=== PATIENT | female | born 1950 | race African-American/Black ===

== ENCOUNTER 2018-07-04 19:42 | Inpatient (IN) | payer MEDICARE, OTHER ==
[~2018-07-04] VITALS: Ht 160 cm; Wt 117.5 kg
--- NOTE | 2018-07-04 19:40 | NUR ---
CALLED TO ER DUE TO ARRIVAL OF NEW PATIENT- ALOC. PATIENT BROUGHT IN BY AMBULANCE. BAGGED PATIENT WITH 100% OXYGEN. ER MD AND ER NURSES AT BEDSIDE. PATIENT INTUBATED BY DR KOEHLER. PATIENT INTUBATED WITH 7.5 ETT, 23 CM AT THE TEETH LINE. COLORIMETRIC CHANGE IDENTIFIED TUBE PLACEMENT. PLACED PATIENT ON VENT WITH SETTINGS: AC/VC 450, 20, +5, 100%. ANCHORFAST APPLIED. AIRWAY SECURE AND PATENT. SUCTIONED LARGE AMOUNT OF THIN, BROWN SECRETIONS. SPUTUM SAMPLE OBTAINED AND SENT TO LAB. WILL CONTINUE TO MONITOR PATIENT.
[2018-07-04 19:42] VITALS: BP_SYST 138; BP_SYST 150; BP_DIAS 102; BP_DIAS 121
--- NOTE | 2018-07-04 19:42 | NUR ---
68/F BIB EMS FOR ALOC. PER EMS, PT WAS FOUND IN HOME COVERED IN OWN FECES AND URINE X2 DAYS. PT ARRIVES TO ED, PT OBTUNDED, GCS 5 ([id number]), PERRL, SKIN NORMAL COOL MILDLY CLAMMY, PT WITH NPA ON R NARES, BEING VENTILATED VIA AMBUBAG 15L O2, SPO2 98%. LUNG SOUNDS CLEAR BL. HR 125 EVEN AND TACHYCARDIC, BP 138/102. BS ACTIVE X4, ABD SOFT ROUND LARGE. PT PLACED ON CARDIAC AND SPO2 MONITOR. BLOOD GLUCOSE [address] KOEHLER, RT, EMT, CO FOUNDER AND CTO, SUBCONTRACTS MANAGER AND PRIMARY RN AT BEDSIDE. HX HTN, DM
--- NOTE | 2018-07-04 19:42 | NUR ---
193-- PT BIB BY RYLEE TO ER BED 10
--- NOTE | 2018-07-04 19:42 | NUR ---
SUPERFICIAL BURN NOTED ON R ARM.
--- NOTE | 2018-07-04 19:43 | NUR ---
1934-- ERMD BEDSIDE EVALUATING PT
--- NOTE | 2018-07-04 19:43 | NUR ---
IO ON R TIBIA INFUSING VERY SLOWLY. UNSUCCESSFUL ATTEMPTS TO PLACE IV BY 2 STAFF RNs. IO PLACED ON L TIBIA BY STAFF SUBMARINE WARFARE OFFICER, PT TOLERATED WELL.
--- NOTE | 2018-07-04 19:43 | NUR ---
REYES PLACED BY QUALITY IMPROVEMENT COORDINATOR (RN), PT TOLERATED WELL. URINE RETURN OF ARASH CLOUDY URINE.
--- NOTE | 2018-07-04 19:49 | NUR ---
ROCURONIUM DROPPED ON FLOOR BY GAS STOVE SERVICER HELPER, WASTED AND NOT USED. PER ER MD, VERBAL ORDER FOR ETOMIDATE 20MG IVP STAT AND VECURONIUM 8MG IVP STAT FOR INTUBATION
--- NOTE | 2018-07-04 19:55 | NUR ---
PT SUCCESSFULLY INTUBATED, PT TOLERATED WELL, SPO2 100%, EQUAL CHEST RISE AND FALL.
[2018-07-04 20:00] VITALS: BP 138/102
--- NOTE | 2018-07-04 20:02 | NUR ---
OG TUBE PLACED BY FIBER OPTIC CENTRAL OFFICE INSTALLER, PT TOLERATED WELL, PLACEMENT VERIFIED.
[2018-07-04] MEDS ORDERED: NACL 0.9% 1,000 ML IV SCH (20:03)
[2018-07-04] MEDS ORDERED: PROPOFOL 1000 MG/100 ML PREMIX 100 ML IV ONE ×2 (20:05)
[2018-07-04] MEDS ORDERED: VECURONIUM 10 MG VIAL IVP ONE (20:05)
[2018-07-04] MEDS ORDERED: VANCOMYCIN 1,000 MG in DEXTROSE 5% 250 ML IV ONE (20:05)
[2018-07-04] MEDS ORDERED: ETOMIDATE 20 MG/10 ML VIAL IVP ONE (20:05)
[2018-07-04] MEDS ORDERED: PIPERACILLIN/TAZOBACTAM 3.375 GM in DEXT 5% MINI-BAG PLUS 50 ML IV ONE (20:05)
[2018-07-04] MEDS ORDERED: MORP60TA PO (20:20)
[2018-07-04] MEDS ORDERED: GABA600T12 PO (20:20)
[2018-07-04] MEDS ORDERED: ACET-787 PO (20:20)
[2018-07-04] MEDS ORDERED: ORE25 PO (20:20)
[2018-07-04] MEDS ORDERED: DOCU-299 PO (20:20)
[2018-07-04] MEDS ORDERED: ATOR10TA PO (20:20)
[2018-07-04] MEDS ORDERED: PROP20TA29 PO (20:20)
[2018-07-04] MEDS ORDERED: LOSA50TA66 PO (20:20)
[2018-07-04] MEDS ORDERED: SPIR25TA20 PO (20:20)
[2018-07-04] MEDS ORDERED: BACL10TA4 PO (20:20)
[2018-07-04] MEDS ORDERED: AMLO5TAB PO (20:20)
--- NOTE | 2018-07-04 20:20 | NUR ---
PT'S ANTERIOR SURFACES CLEANSED WITH RECRUITMENT CONSULTANT
--- NOTE | 2018-07-04 20:30 | NUR ---
PUBLIC HEALTH POLICY ANALYST ONLY ABLE TO DRAW 1 SET OF BLOOD CULTURES DUE TO PT BEING A HARD STICK. CARLY SOLORZANO MADE AWARE. WILL DRAW BLOOD DURING PICC LINE INSERTION.
[2018-07-04] MEDS ORDERED: VANCOMYCIN 1,000 MG VIAL ONE (20:43)
[2018-07-04] MEDS ORDERED: PIPERACILLIN/TAZOBACTAM 3.375 GM VIAL IV ONE (20:43)
--- NOTE | 2018-07-04 21:00 | NUR ---
TIME OUT CALLED FOR R FEMORAL PICC 3X LUMEN INSERTION. DR KOEHLER, PRIMARY RN AND RUBBER TILE FLOOR LAYER AT BEDSIDE. SUCCESSFUL PLACEMENT, PT TOLERATED WELL.
--- NOTE | 2018-07-04 21:10 | NUR ---
Mathew le in ED - 07/05/18 at 0409 by VINAYAK PT BACK FROM CT. CONDITION STABLE.
[2018-07-04 21:19] LABS: APPEARANCE,URINE SL CLOUDY (CLEAR); BILIRUBIN,URINE 2+ (NEGATIVE); BLOOD, URINE 3+ (NEGATIVE); COLOR,URINE YELLOW (YELLOW); LEUKOCYTE ESTERASE ,URINE NEGATIVE (NEGATIVE); NITRITE, URINE NEGATIVE (NEGATIVE); PH,URINE 5.5 (5.0-9.0); UGLUCOSE NEGATIVE (NEGATIVE)
[2018-07-04 21:33] LABS: RBC,URINE 11-20 (MOD) /HPF (0-5)
[2018-07-04 21:33] LABS: HEMATOCRIT 47.4 % (36-48); HEMOGLOBIN 15.8 g/dL (12.0-16.0); MEAN CORPUSCULAR HEMOGLOBIN 30 pg (27-31); MEAN CORPUSCULAR HGB CONC 33 g/dL (33-37); MEAN CORPUSCULAR VOLUME 90.4 fL (80-94); PLATELET COUNT (AUTO) 236 K/uL (140-450); RED BLOOD CELL COUNT(AUTO) 5.25 MIL/uL (4.20-5.40); RED CELL DISTRIBUTION WIDTH 14.2 % (11.6-13.7)
[2018-07-04 21:42] LABS: ANION GAP 20.8 (8-16); CARBON DIOXIDE 27.9 mmol/L (21-32); CREATININE 2.5 mg/dL (0.6-1.3); POTASSIUM 3.7 mmol/L (3.5-5.1)
--- NOTE | 2018-07-04 21:45 | NUR ---
TRANSFERED PATIENT TO CT WITH NO INCIDENT. PATIENT WAS BAGGED WITH AMBU BAG AT 100% FIO2 EN ROUTE AND DURING CT. PATIENT WAS CONNECTED TO A MONITOR FOR HEART RATE AND SPO2 MONITORING.
--- NOTE | 2018-07-04 21:45 | NUR ---
PRIMARY RN, EMT, LIFE SCIENCE RESEARCH ASSISTANT AND RT AT BEDSIDE. PT PLACED ON CARDIAC AND SPO2 MONITOR. PROPOFOL DRIP, IVF AND IVPB INFUSING WELL. PT IN STABLE CONDITION. TAKEN TO CT FOR CT HEAD AT THIS TIME.
[2018-07-04 21:47] LABS: PROTHROMBIN TIME 11.8 secs (10.8-13.4)
[2018-07-04 21:49] LABS: ALBUMIN 2.9 g/dL (3.4-5.0)
[2018-07-04 22:03] LABS: LYMPHOCYTES % (MANUAL) 6 % (20-46); MONOCYTES % (MANUAL) 4 % (5-12)
[2018-07-04 22:04] LABS: PROMYELOCYTES % 1 % (0-0)
[2018-07-04] MEDS ORDERED: NACL 0.9% 1,000 ML IV ONE (22:10)
--- NOTE | 2018-07-04 22:10 | NUR ---
PT BACK FROM CT, CONDITION STABLE.
--- NOTE | 2018-07-04 22:19 | NUR ---
PRIMARY RN, EMT, HUMAN RESOURCES SPECIALIST AND RT AT BEDSIDE. PT PLACED ON CARDIAC AND SPO2 MONITOR. PROPOFOL DRIP, IVF AND IVPB INFUSING WELL. PT IN STABLE CONDITION. TAKEN TO CT FOR CT CERVICAL AT THIS TIME.
--- NOTE | 2018-07-04 22:19 | NUR ---
PT TAKEN TO CT VIA BED
--- NOTE | 2018-07-04 22:31 | NUR ---
PT BACK FROM CT, CONDITION STABLE. PLACED BACK ON MECHANICAL VENT, MILL ROLL REWINDER AND SPO2 MONITOR.
--- NOTE | 2018-07-04 22:31 | NUR ---
PT RETURNED FROM CT VIA BED
[2018-07-04] MEDS ORDERED: INSULIN REGULAR, HUMAN 100 UNIT in NACL 0.9% 100 ML IV ONE ×2 (22:45)
--- NOTE | 2018-07-04 22:45 | NUR ---
PT'S POSTERIOR SURFACES CLEANSED AND PAT DRY. NOTED R SACRAL MOISTURE SKIN EXCORIATION AND SKIN TEAR AND L SHOULDER BURN/DISCOLORATION. BED CLEANED, GOWN CHANGED. PT TOLERATED WELL.
[2018-07-04] MEDS ORDERED: cefTRIAXone 2,000 MG in DEXTROSE 5% 100 ML IV ONE (22:50)
[2018-07-04 23:02] LABS: BARBITURATE, URINE NEG. ng/ml (NEG <=200); BENZODIAZEPINE, URINE NEG. ng/mL (NEG <=200); CANNABINOID, URINE NEG. ng/mL (NEG <=50); COCAINE, URINE NEG. ng/mL (NEG <=300); OPIATE, URINE POS. ng/mL (NEG <=2000); PHENCYCLIDINE SCREEN,URINE NEG. ng/mL (NEG <=25)
--- NOTE | 2018-07-04 23:03 | NUR ---
OG TUBE HAS DRAINED 300ML DARK BROWN EMESIS AT THIS TIME.
[2018-07-04 23:13] LABS: ACETAMINOPHEN < 0.5 ug/ml (10-30); SALICYLATE < 2.8 mg/dL (2.8-20.0)
[2018-07-04] MEDS ORDERED: ACETAMINOPHEN 325 MG TAB PO PRN (23:15)
[2018-07-04] MEDS ORDERED: HYDROcodone/APAP 5/325 MG 1 TAB TAB PO PRN (23:15)
[2018-07-04] MEDS ORDERED: ALBUTEROL SULFATE/IPRATROPIU 3 ML SOL IH PRN (23:15)
[2018-07-04] MEDS ORDERED: LORazepam 2 MG/ML VIAL IM/IVP PRN (23:15)
[2018-07-04] MEDS ORDERED: DOCUSATE SODIUM 100 MG GELCAP PO PRN (23:15)
[2018-07-04] MEDS ORDERED: MORPHINE SULFATE 2 MG/ML SYR IVP PRN (23:15)
[2018-07-04] MEDS ORDERED: ONDANSETRON 4 MG/2 ML VIAL IM/IVP PRN (23:15)
[2018-07-04] MEDS ORDERED: DEXTROSE 50% 50 ML SYR IVP PRN (23:15)
[2018-07-04] MEDS ORDERED: ZOLPIDEM 5 MG TAB PO PRN (23:15)
[2018-07-04] MEDS ORDERED: VANCOMYCIN PER PHARMACY MC PRN (23:15)
[2018-07-04] MEDS ORDERED: cefTRIAXone 2,000 MG VIAL ONE (23:16)
--- NOTE | 2018-07-04 23:28 | NUR ---
Patient will be admitted to care of DR SOFIA. Admited to ICU. Will go to room 1. Belongings list completed. Report to RACHAEL KIRAN.
--- NOTE | 2018-07-04 23:35 | NUR ---
RECEIVED PT FROM ER BROUGHT BY ER STAFF AND RT WITH RYLEE. PT IS ETT TO VENT WITH VENT SETTING AC RATE 18,TV 450, FIO2 100% AND PEEP OF 5 TOLERATED WELL. CRANBERRY SORTER SHOW SR WITH BUNDLE BRANCH,OGT IN PLACE, PLACEMENT CONFIRM, CONNECT TO INTERMITTENT SUCTION PER . OGT DRAIN BLACKISH COLOR, ABD SOFT NON DISTEDNDED.PT IS SEDATED. PT COME WITH PROPOFOL AT 15 MCG/KG/MIN, TO RIGHT FEMORAL PICC LINE.DRY WT IS 110 KG. IV NS AT 100 CC/HR FROM ER.PERIPHERAL LINE TO RIGHT WRIST NO 20 GAUGE. REPORT GIVEN BY KIRILL CANO. PER REPORT PT WAS BROUGHT BY AMBULANCE WITH ALTERED LEVEL OF CONSCIOUSNESS. NOTED PT WITH MULTIPLE ABRASION TO RIGHT UPPER ARM,ON SKIN TO RIGHT ELBOW ABD TO RIGHT BUTTOCK AREA.F/C IN PLACE WITH CLOUDY URINE.NO FAMILY PRESENT AT THIS TIME. AT BED SIDE AND DR. GREWAL PULMOLOGIST COME TO SEE PT.CONT TO MONITOR CLOSELY. Addendum: 07/05/18 at 0253 by Lynette Hart RN SKIN TEAR TO RIGHT BUTTOCK AND RIGHT ELBOW AND ABRASION RIGHT UPPER ARM Addendum: 07/05/18 at 0617 by Lynette Hart RN CLARIFICATION THAT CENTRAL LINE TRIPLE LUMEN TO RIGHT FEMORAL AREA
[2018-07-04 23:40] VITALS: BP 127/78
[2018-07-05] VITALS (107 sets, daily range): BP systolic 86–149; BP diastolic 52–122
[2018-07-05 00:19] LABS: PHOSPHORUS 6.2 mg/dL (2.5-4.9); THYROID STIMULATING HORMONE 0.7 uIU/mL (0.34-3.74)
[2018-07-05] MEDS: DEXT 5% /NACL 0.9% 1,000 ML IV SCH ×2 (00:20→15:35)
[2018-07-05] MEDS: BLOOD GLUCOSE MONITORING 1 DEV DEV FS SCH ×5 (00:32→20:36)
[2018-07-05] MEDS: INSULIN LISPRO SLIDING SCALE 100 UNITS/ML VIAL SUBQ PRN ×5 (00:34→20:19)
--- NOTE | 2018-07-05 00:35 | NUR ---
BLOOD SUGAR 415 AWARE AND 10 UNITS INSULIN GIVEN SQ TO ABD. CONTINUE TO MONITOR.
[2018-07-05] MEDS ORDERED: NOREPINEPHRINE 16 MG in DEXTROSE 5% 250 ML IV PRN (00:45)
[2018-07-05] MEDS ORDERED: NACL 0.9% 2,000 ML IV ONE (00:50)
--- NOTE | 2018-07-05 00:55 | NUR ---
DR SORIA MADE AWARE BP IS LOW 88/67 PER MD TO GIVE IV NS 2 LITER BOLUS MEDS WAS GIVEN AND BP INCREASE TO 90/70 CONTINUE TO MONITOR CLOSELY
--- NOTE | 2018-07-05 01:00 | NUR ---
ABG WAS DONE RESULT REPORTED TO MD BY RT. AND PER RT FIO2 DOWN TO 80% FROM 100% AND PT TOLERATED WELL
[2018-07-05] MEDS: PROPOFOL 1000 MG/100 ML PREMIX 100 ML IV PRN ×3 (01:01→15:34)
[2018-07-05] MEDS ORDERED: METOCLOPRAMIDE 10 MG/2 ML INJ VIAL IVP PRN ×2 (01:40→07:25)
--- NOTE | 2018-07-05 02:00 | NUR ---
BP INCREASE TO 134/70.
--- NOTE | 2018-07-05 02:10 | NUR ---
PER RT FIO2 DOWN TO 60% FROM 80% AND PT TOLERATED WELL
[2018-07-05] MEDS ORDERED: PIPERACILLIN/TAZOBACTAM 2.25 GM VIAL IV ONE (02:49)
--- NOTE | 2018-07-05 02:51 | NUR ---
HEPARIN 5000 UNITS SQ GIVEN ORDER. PT CONTINUE ON SEDATION. NO DISTRESS NOTED.
--- NOTE | 2018-07-05 03:39 | NUR ---
VENT CHECK DONE. VENT ALARMS ON AND AUDIBLE. TITRATED OXYGEN TO 50%. PULSE OX SAT 100%. RN NOTIFIED. WILL CONTINUE TO MONITOR.
--- NOTE | 2018-07-05 03:48 | NUR ---
PER RT FIO2 DOWN TO 50% AND PT TOLERATED WELL
[2018-07-05] MEDS ORDERED: PIPERACILLIN/TAZOBACTAM 2.25 GM in DEXTROSE 5% 50 ML IV SCH (05:00)
--- NOTE | 2018-07-05 05:00 | NUR ---
ZOSYN IV ABT GIVEN ORDER.AM CARE GIVEN. F/C CARE,ORAL CARE AND BED BATH. KEPT PT CLEAN AND DRY.
[2018-07-05 05:37] LABS: ANION GAP 12.2 (8-16); CARBON DIOXIDE 31.8 mmol/L (21-32); CREATININE 2.2 mg/dL (0.6-1.3)
[2018-07-05 05:40] LABS: MAGNESIUM 1.7 mg/dL (1.8-2.4); PHOSPHORUS 2.8 mg/dL (2.5-4.9)
[2018-07-05] MEDS ORDERED: ALBUTEROL SULFATE/IPRATROPIU 3 ML SOL IH SCH (06:00)
[2018-07-05] MEDS ORDERED: MAG SULF 2000 MG/WATER PREMIX 50 ML IV SCH (06:05)
[2018-07-05] MEDS ORDERED: POTASSIUM CHLORIDE 40 MEQ, LIDOCAINE MPF 1% - 5 mL VIAL 25 MG in NACL 0.9% 250 ML IV ONE (06:05)
--- NOTE | 2018-07-05 06:13 | NUR ---
MADE AWARE THAT LACTIC ACID IS 3.3 FROM 2.2, TROPONIN 0.323, POTASSIUM IS 3 AND MAGNESIUM IS 1.7. ORDER WILL FOLLOW PER MD ORDER.
[2018-07-05] MEDS ORDERED: MAG SULF 2000 MG/WATER PREMIX 50 ML IV ONE (06:20)
[2018-07-05] MEDS ORDERED: KCL 20 MEQ/WATER INJ PREMIX 200 ML IV ONE (06:20)
[2018-07-05 06:21] LABS: CREATINE KINASE MB 28.6 ng/mL (0-3.6)
--- NOTE | 2018-07-05 06:32 | NUR ---
COME TO SEE PT. UPDATE PT CONDITION AND CRITICAL LABS FOR THIS AM. ORDER TO FOLLOW.
--- NOTE | 2018-07-05 06:41 | NUR ---
BLOOD SUGAR 326 AND 8 UNITS INSULIN GIVEN PER SLIDING SCALE DR.RHEA BAKER.
[2018-07-05 06:52] LABS: EOSINOPHILS % (AUTO) 0.1 % (0.0-4.0); HEMATOCRIT 41.3 % (36-48); HEMOGLOBIN 13.8 g/dL (12.0-16.0); LYMPHOCYTES # (AUTO) 0.9 K/uL (2.5-16.5); LYMPHOCYTES % (AUTO) 9.3 % (20.5-51.1); MEAN CORPUSCULAR HEMOGLOBIN 30 pg (27-31); MEAN CORPUSCULAR HGB CONC 33 g/dL (33-37); MEAN CORPUSCULAR VOLUME 89.7 fL (80-94); MONOCYTES # (AUTO) 0.6 K/uL (0.8-1.0); MONOCYTES % (AUTO) 6.4 % (1.7-9.3); NEUTROPHILS # (AUTO) 8.4 K/uL (1.8-7.7); NEUTROPHILS % (AUTO) 84.2 % (42.2-75.2); RED BLOOD CELL COUNT(AUTO) 4.61 MIL/uL (4.20-5.40)
[2018-07-05] MEDS ORDERED: PROPOFOL 1000 MG/100 ML PREMIX 100 ML IV PRN ×2 (07:20)
--- NOTE | 2018-07-05 07:29 | NUR ---
REPORT GIVEN TO TANNER AM SHIFT.PT NO DISTRESS ,CONTINUE WITH PROPOFOL DRIPS.
--- NOTE | 2018-07-05 07:30 | NUR ---
RECEIVED REPORT FROM RESAW OPERATOR NURSE AT BEDSIDE, PT IS SEDATED, RASS -3, VSS, FLACC 0, ETT TO VENT WITH AC 14, FIO2 50%, VT 450, PEEP 5, NO S/S OF DISTRESS, CLEAR LUNG SOUNDS SENDY, O2 SAT AT 99%. SR ON LEAD AUDITOR, ELEVATED TROPONIN NOTED, LARGE SOFT ABDOMEN WITH ACTIVE BOWEL SOUNDS, OGT IN PLACE TO LWIS WITH GREENISH EMESIS NOTED, REYES CATHETER IN PLACE WITH CLEAR YELLOW URINE VIA GRAVITY, GENERALIZED WEAKNESS NOTED, SCD'S IN PLACE, AFEBRILE, SKIN IS WARM AND DRY TO TOUCH, OPEN WOUND PRESENT (SEE WOUND ASSESSMENT), IV SITE TO LEFT WRIST, 20GA AND SL, CENTRAL LINE TO RIGHT FEMORAL, TLC, PATENT, RUNNING PROPOFOL AT 10MG/HR, DRY WEIGHT 110KG USED ON THE PUMP, AND D5 NS AT 70ML/HR. HOB ELEVATED TO 30 DEGREES, SAFETY MEASURES IN PLACE, ORAL CARE PROVIDED, POSITION CHANGED FOR OFF LOAD PRESSURE, WILL CONTINUE TO MONITOR.
[2018-07-05 07:56] LABS: PLATELET COUNT (AUTO) 178 K/uL (140-450)
[2018-07-05] MEDS ORDERED: POTASSIUM CHLORIDE 40 MEQ, LIDOCAINE 1% 25 MG in NACL 0.9% 250 ML IV SCH (08:00)
--- NOTE | 2018-07-05 08:20 | NUR ---
PATIENT HAS BEEN SCREENED AND CATEGORIZED HIGH NUTRITION RISK. PATIENT WILL BE SEEN WITHIN 1-2 DAYS OF ADMISSION. 07/05/18-07/06/[address]
[2018-07-05] MEDS ORDERED: SPIRONOLACTONE 25 MG PO SCH (09:00)
[2018-07-05] MEDS: amLODIPine 5 MG TAB PO SCH (09:00)
[2018-07-05] MEDS ORDERED: HYDROCHLOROTHIAZIDE 25 MG TAB PO SCH (09:00)
[2018-07-05] MEDS: LOSARTAN 50 MG TAB PO SCH (09:00)
[2018-07-05] MEDS ORDERED: SPIRONOLACTONE 25 MG TAB PO SCH (09:00)
[2018-07-05] MEDS: LACTOBACILLUS RHAMNOSUS GG 1 EACH CAP PO SCH (09:06)
[2018-07-05] MEDS: PANTOPRAZOLE 40 MG INJ VIAL IVP SCH (09:06)
[2018-07-05] MEDS: THIAMINE 200 MG in NACL 0.9% 50 ML IV SCH ×2 (09:06→20:12)
[2018-07-05] MEDS: INSULIN LANTUS 100 UNITS/ML 10 ML VIAL SUBQ SCH (09:08)
--- NOTE | 2018-07-05 09:30 | NUR ---
SCHEDULED MEDICATION GIVEN, HOLD PO BP MEDICATION AT THIS TIME DUE TO PARAMETER HOLD IF BP<120, PT'S BP 109/67. OGT TO LWS WITH >500ML OUTPUT, DR. MARTIN MADE AWARE.
[2018-07-05] MEDS: ATORVASTATIN 20 MG TAB PO SCH (09:41)
--- NOTE | 2018-07-05 11:10 | NUR ---
DR. GARCIA CAME IN TO SEE PT'S AT BEDSIDE, WILL FOLLOW UP WITH NEW ORDERS.
--- NOTE | 2018-07-05 11:10 | NUR ---
FAXED THE REQUEST FOR PT'S MEDICAL RECORD TO [facility], WILL WAITING FOR RESPOND.
--- NOTE | 2018-07-05 11:15 | NUR ---
DR. NEGRON CAME IN TO SEE PT AT BEDSIDE, UPDATED PT'S CONDITION, WILL FOLLOW UP WITH NEW ORDERS.
--- NOTE | 2018-07-05 11:33 | NUR ---
SPOKE WITH MD JAMIL AT PT BEDSIDE, MADE VENT CHANGES AND REQUESTS FOLLOW UP ABG 07/06 0800., A/C VT 500, RATE 10, 40 FLOW , PEEP 5, FIO2 35%
--- NOTE | 2018-07-05 11:36 | NUR ---
CALLED JUSTIN [phone] SPOKE WITH KVNG NOTIFIED HER THAT THE PATIENT IS ADMITTED [facility] IN ICU BED PER KVNG THEY ARE AWARE OF PATIENT'S ADMISSION AND JUSTIN HU WILL FOLLOW UP.
[2018-07-05] MEDS: PIPER/TAZO 2.25GM/D5W PREMIX 50 ML IV SCH ×2 (11:41→17:28)
--- NOTE | 2018-07-05 12:00 | NUR ---
NO CHANGE OF CONDITION AT THIS TIME, VSS, FLACC 0, EEG AT BEDSIDE.
--- NOTE | 2018-07-05 12:15 | NUR ---
PER 411 DIRECTORY ASSISTANCE OPERATOR, PT HAS SEIZURE ACTIVITY ON EEG EVERY 30 SEC, DR. MARTIN MADE AWARE.
[2018-07-05] MEDS: ASCORBIC ACID INJ 1,500 MG in NACL 0.9% 100 ML IV SCH ×2 (12:19→17:28)
--- NOTE | 2018-07-05 12:39 | NUR ---
07/05/18 RD INITIAL ASSESSMENT COMPLETED PLEASE REFER TO NUTRITION ASSESSMENT UNDER CARE ACTIVITY FOR ESTIMATED NUTRITIONAL NEEDS. 1. WHEN APPROPRIATE CONSIDER TUBE FEEDING WITH VITAL AF 1.2 AT GOAL RATE 60 ML/HR. START AT 15 ML/HR AND ADVANCE BY 15 ML/HR Q6H. -THIS WILL PROVIDE 1440 ML, 1728 KCAL, AND 108 GM OF PROTEIN WHICH MEETS 100% OF ESTIMATED ENERGY NEEDS 2. FREE WATER FLUSH [address] TO FOLLOW-UP 2-3 DAYS, HIGH RISK [address]LENA [address] RD
[2018-07-05] MEDS ORDERED: PHENYTOIN 1,000 MG in NACL 0.9% 100 ML IV SCH (13:00)
--- NOTE | 2018-07-05 13:47 | NUR ---
DR. GRIGGS CAME IN TO SEE PT AT BEDSIDE, WILL FOLLOW UP WITH NEW ORDERS.
--- NOTE | 2018-07-05 14:05 | NUR ---
ECCO DONE AT BED SIDEPT REMAIN SLEEPING.
[2018-07-05] MEDS: ALBUTEROL SULFATE/IPRATROPIU 3 ML SOL IH SCH ×2 (14:06→18:46)
--- NOTE | 2018-07-05 15:30 | NUR ---
VQ SCAN DONE AT BEDSIDE.
--- NOTE | 2018-07-05 16:00 | NUR ---
US AT BEDSIDE, NO S/S OF DISTRESS, ORAL CARE PROVIDED, PM CARE AND F/C PROVIDED, POSITION CHANGED FOR OFF LOAD PRESSURE.
--- NOTE | 2018-07-05 18:10 | NUR ---
DR. HDZ CAME IN TO SEE PT'S AT BEDSIDE, WILL FOLLOW UP WITH NEW ORDERS.
[2018-07-05] MEDS ORDERED: VANCOMYCIN 1GM/DEXT 5% PREMIX 200 ML IV SCH (19:00)
--- NOTE | 2018-07-05 19:01 | NUR ---
RECEIVED PATIENT ENDOTRACHEALLY INTUBATED WITH 7.5 ETT AT 23 CM AT THE TEETH LINE ON VENT SETTINGS: AC/VC 500, 10, +5, 35%. VENT CHECK DONE. VENT ALARMS ON AND AUDIBLE. VENT PLUGGED INTO RED OUTLET. AMBU BAG AT [facility]. SCHEDULED BREATHING TREATMENT ADMINISTERED. TOLERATED TX WELL, NO ADVERSE SIDE EFFECTS. AIRWAY SECURE AND PATENT. SUCTIONED SMALL AMOUNT OF THICK, PULIDO/PINK TINGED SECRETIONS. NO RESPIRATORY DISTRESS NOTED AT THIS TIME. WILL CONTINUE TO MONITOR.
--- NOTE | 2018-07-05 19:25 | NUR ---
REPORT GIVEN TO LAB DIRECTOR NURSE AT BEDSIDE FOR CONTINUE OF CARE. PT IS IN STABLE CONDITION AT THIS TIME.
--- NOTE | 2018-07-05 19:30 | NUR ---
RECEIVED REPORT FROM AM NURSE, REYES IN PLACE, IV FLUIDS RUNNING, SIDERAILS UP X2, ALARMS IN PLACE, HR REGULAR, S1S2 PRESENT, CAP REFILL <3S, 2+ BILATERAL UPPER AND LOWER EXTREMITIES, LUNG SOUNDS CLEAR THROUGHOUT, REGULAR, SYMMETRICAL ON INSPIRATION AND EXPIRATION, PT ON ETT TO VENT, PEEP 5, AC/VC, 35 FIO2, RATE 10, BOWEL SOUNDS PRESENT IN ALL QUADRANTS HYPOACTIVE, ABDOMEN SOFT, ROUND, NONDISTENDED, PERRL, PT ON SEDATION, RASS -3, PROPOFOL RUNNING AT 10 MCG/HR, DRY WEIGHT 110 KG. WILL CONTINUE TO MONITOR PT.
[2018-07-05] MEDS ORDERED: levETIRAcetam 500 MG in NACL 0.9% 100 ML IV SCH (21:00)
[2018-07-05] MEDS ORDERED: PHENYTOIN 100 MG/2 ML VIAL IVP SCH (21:00)
--- NOTE | 2018-07-05 21:35 | NUR ---
VENT CHECK DONE. VENT ALARMS ON AND AUDIBLE. NO RESPIRATORY DISTRESS NOTED AT THIS TIME. WILL CONTINUE TO MONITOR.
--- NOTE | 2018-07-05 22:05 | NUR ---
NO CHANGE IN PT'S CONDITION AT THIS TIME. VS REMAINS STABLE. RASS -3. FLACC 0. PT DOES NOT APPEAR TO BE EXPERIENCING ANY DISCOMFORT AT THIS TIME. PT TURNED AND REPOSITIONED. KEPT HOB AT 30 DEGREES. ALL SAFETY PRECAUTIONS REMAIN IN PLACE. WILL CONTINUE TO MONITOR PT.
--- NOTE | 2018-07-05 23:43 | NUR ---
VENT CHECK DONE. ALARMS ON AUDIBLE. NO RESPIRATORY DISTRESS NOTED AT THIS TIME. WILL CONTINUE TO MONITOR.
[2018-07-06] VITALS (89 sets, daily range): BP systolic 74–157; BP diastolic 21–100
--- NOTE | 2018-07-06 00:20 | NUR ---
SR ON MONITOR. AFEBRILE. NO CHANGE IN CONDITION. ORAL CARE PROVIDED. STILL NO BM NOTED AT THIS TIME. RESPIRATIONS ARE EVEN AND UNLABORED. NO SIGNS OF RESPIRATORY DISTRESS NOTED. FLACC 0.
[2018-07-06] MEDS: PIPER/TAZO 2.25GM/D5W PREMIX 50 ML IV SCH ×4 (00:43→17:38)
[2018-07-06] MEDS: ASCORBIC ACID INJ 1,500 MG in NACL 0.9% 100 ML IV SCH ×4 (01:00→18:44)
--- NOTE | 2018-07-06 02:10 | NUR ---
RASS -3. FLACC 0. PT'S VS ARE STABLE. OXYGEN SATURATION WNL. RESPIRATIONS ARE EVEN AND UNLABORED. HOB KEPT AT [address]ES. OGT SECURED IN PLACE. STILL HAS DRAINAGE NOTED. ALL SAFETY PRECAUTIONS ARE IN PLACE.
--- NOTE | 2018-07-06 03:45 | NUR ---
AM CARE PROVIDED TO PT. TOLERATED BEING TURNED AND REPOSITIONED. LINENS ARE CHANGED. NO FURTHER SKIN BREAKDOWN NOTED. RESPIRATIONS ARE EVEN AND UNLABORED. NO SIGNS OF ANY DISCOMFORT OBSERVED. WILL CONTINUE TO MONITOR PT.
[2018-07-06] MEDS: DEXT 5% /NACL 0.9% 1,000 ML IV SCH (03:48)
[2018-07-06] MEDS: PROPOFOL 1000 MG/100 ML PREMIX 100 ML IV PRN (05:02)
[2018-07-06 05:43] LABS: ANION GAP 12.1 (8-16); CARBON DIOXIDE 32.1 mmol/L (21-32); CREATININE 2.2 mg/dL (0.6-1.3); POTASSIUM 3.2 mmol/L (3.5-5.1)
[2018-07-06 06:04] LABS: MAGNESIUM 2.2 mg/dL (1.8-2.4); PHOSPHORUS 2.4 mg/dL (2.5-4.9)
[2018-07-06 06:14] LABS: BASOPHILS % (AUTO) 0.2 % (0.0-2.0); EOSINOPHILS # (AUTO) 0.1 K/uL (0-0.4); EOSINOPHILS % (AUTO) 0.8 % (0.0-4.0); HEMATOCRIT 38.5 % (36-48); HEMOGLOBIN 12.8 g/dL (12.0-16.0); LYMPHOCYTES # (AUTO) 1.1 K/uL (2.5-16.5); LYMPHOCYTES % (AUTO) 10.5 % (20.5-51.1); MEAN CORPUSCULAR HEMOGLOBIN 30 pg (27-31); MEAN CORPUSCULAR HGB CONC 33 g/dL (33-37); MEAN CORPUSCULAR VOLUME 90.3 fL (80-94); MONOCYTES # (AUTO) 0.7 K/uL (0.8-1.0); MONOCYTES % (AUTO) 6.7 % (1.7-9.3); NEUTROPHILS # (AUTO) 8.2 K/uL (1.8-7.7); NEUTROPHILS % (AUTO) 81.8 % (42.2-75.2); PLATELET COUNT (AUTO) 182 K/uL (140-450); RED BLOOD CELL COUNT(AUTO) 4.26 MIL/uL (4.20-5.40); RED CELL DISTRIBUTION WIDTH 14.3 % (11.6-13.7); WHITE BLOOD COUNT (AUTO) 10.1 K/uL (4.8-10.8)
[2018-07-06] MEDS ORDERED: BISACODYL 10 MG SUPP RC SCH (06:30)
[2018-07-06] MEDS ORDERED: DEXT 5% / NACL 0.45% 1,000 ML IV SCH (06:55)
[2018-07-06] MEDS: INSULIN LISPRO SLIDING SCALE 100 UNITS/ML VIAL SUBQ PRN ×4 (06:58→20:28)
[2018-07-06] MEDS: BLOOD GLUCOSE MONITORING 1 DEV DEV FS SCH ×4 (06:58→20:27)
--- NOTE | 2018-07-06 07:15 | NUR ---
REPORT GIVEN TO MORNING RN, KENYA, FOR CONTINUITY OF CARE. VS STABLE AT THIS TIME.
--- NOTE | 2018-07-06 07:30 | NUR ---
RECEIVED REPORT FROM [facility], [place] RN's DEDRICK.
--- NOTE | 2018-07-06 07:50 | NUR ---
RECEIVED REPORT FROM PM NURSE, PT IS SLEEPING/SEDATED RASS -3 PROPOFOL RUNNING AT 10 MCG/KG/MIN, SKIN IS WARM AND DRY, PERRL 3MM SLUGGISH, REYES IN PLACE, IV FLUIDS RUNNING D5 NS 70 ML, LT. HAND 20 G INTACT, PATENT, AND FLUSHED WITH 10 MLS. PT HAS A RT FEMORAL TRIPLE LUMEN CENTRAL CATH. HR REGULAR, S1S2 PRESENT, CAP REFILL <3S, 2+ BILATERAL UPPER AND LOWER EXTREMITIES, LUNG SOUNDS CLEAR THROUGHOUT, SLIGHTLY DIMINISHED IN BILATERAL LOWER LOBES, REGULAR, SYMMETRICAL ON INSPIRATION AND EXPIRATION, PT ON 7.5 ETT TO VENT,LIP LINE AT 23-RT KERRI REPORTS TO ADVANCE TO TEETH LINE 23 PEEP 5, AC/VC, 35 FIO2, RATE 10, TV-500. BOWEL SOUNDS IN ALL QUADRANTS HYPOACTIVE, ABDOMEN SOFT, ROUND, NONDISTENDED, DRY WEIGHT 110 KG. SIDERAILS UP X2, ALARMS IN PLACE, WILL CONTINUE TO MONITOR PT.
[2018-07-06] MEDS: ALBUTEROL SULFATE/IPRATROPIU 3 ML SOL IH SCH ×3 (08:00→19:00)
--- NOTE | 2018-07-06 08:00 | NUR ---
AT BEDSIDE TO ASSESS PATIENT. CHECKED RESIDUAL, <10 ML. RECHECK IN 4 HOURS. IF RESIDUAL LOW START FEEDING.
--- NOTE | 2018-07-06 08:01 | NUR ---
RECEIVED ON A PlixSCAPE R860 VENTILATOR PLUGGED INTO RED OUTLET TOLERATING WELL WITHOUT INCIDENT TO AN ENDOTRACHEAL TUBE #7.5 SECURED WITH AN ANCHOR FAST AT 23cm TEETH/GUM CUFF PRESSURE CHECKED NOTED AMBU BAG AT [facility] LOC SEDATED RESPONSIVE TO PHYSICAL MOVEMENT BREATH SOUNDS RHONCHI RIGHT SIDE TO CLEAR LEFT SIDE GOOD EQUAL CHEST RISE ENDOTRACHEAL SUCTION FOR MODERATE THICK YELLOW SECRETIONS AIRWAY PATENT
--- NOTE | 2018-07-06 08:10 | NUR ---
INCREASED PT's PROPOFOL TO 15MCG/KG/MIN. PT IS AROUSABLE WHEN SLIGHTLY STIMULATED.
--- NOTE | 2018-07-06 08:15 | NUR ---
PATIENT REASSESSED FOR PROPOFOL INCREASE TO 15 MCG, RASS -3.
--- NOTE | 2018-07-06 08:30 | NUR ---
ASSISTING WOUND CARE NURSE TANNER WITH POSITIONING AND ASSESSING WOUNDS ON BUTTOCKS, ANKLES, AND SHOULDER.
[2018-07-06] MEDS ORDERED: THIAMINE 200 MG/2 ML VIAL ONE (08:57)
--- NOTE | 2018-07-06 09:00 | NUR ---
WOUND CARE EVALUATION NOTE: REASON FOR EVALUATION: LOW JOSE SCALE AND RIGHT BUTTOCK WOUND SKIN ASSESSMENT DONE WITH THIS 68 Y/O FEMALE PT ADMITTED FROM [facility] TO [facility] WITH INITIAL DX AMS. PT. ADMITTED WITH PRESSURE INJURIES. PAST MEDICAL HX INCLUDES HTN, DM, OBESITY, CHRONIC PAIN AND RIGHT KNEE REPLACEMENT. ALL ABOVE INFORMATION OBTAINED FROM ADMISSION H&P. PT IS SEDATED WITH INTUBATION. SKIN IS WARM AND DRY, BLE NO HAIR GROWTH, NO EDEMA. DORSAL PEDAL PULSES PRESENT AND NORMAL. CAPILLARY REFILLED < 2 SEC. X 10 TOES. F/C PATENT WITH SMALL AMOUNT YELLOW COLOR URINE OUTPUT OBSERVED. PLAN OF CARE DISCUSSED WITH PRIMARY RN. INTEGUMENTARY: - LOWER LIP SWELLING WITH OPEN SORE 0.3X0.3CM, WOUND BED IS YELLOW AND MOIST, NO ODOR -RIGHT UPPER EXTREMITY FROM FOREARM, ELBOW EXTENDED TO POSTERIOR RIGHT UPPER SHOULDER AND BACK AREA FRICTION ABRASIONS WITH ERYTHEMA -ABDOMEN SOFT WITH ABDOMINAL FOLDS AND GROINS MOIST, SKIN INTACT -PRESSURE INJURY RIGHT BUTTOCK FRICTION OPEN WOUND WITH PARTIAL THICKNESS LOSS OF SKIN 5X4X0.1CM WOUND BED 100% GRANULATING TISSUE MOIST, NO ODOR, HIRAM-WOUND SKIN DTI AND DENUDED, ENTIRE MEASUREMENT OF 10X6 CM AND INDICATED FURTHER DAMAGE. -PRESSURE INJURY STAGE 2 RIGHT LOWER LEG ANTERIOR HIRAM-ANKLE 1X1CM UNOPEN BLISTER, HIRAM-WOUND SKIN INTACT. -BLANCHABLE REDNESS TO RIGHT AND LEFT HEELS RECOMMENDATIONS: -ORAL CARE PER PROTOCOL, CONTINUE TO MONITOR LOWER LIP AND KEEP AREA DRY AND CLEAN -APPLY INTER DRY CLOTH TO ABDOMINAL FOLDS AND R/L GROINS Q5DAYS AND PRN IF SOILING -APPLY HYDRAGUARD TO RIGHT UPPER EXTREMITY FROM FOREARM, ELBOW EXTENDED TO POSTERIOR RIGHT UPPER SHOULDER AND BACK BID AND LEAVE IT OPEN TO AIR - CLEANSE RIGHT BUTTOCK WITH WOUND CLEANSING SOLUTION AND APPLY Z-GUARD COVER WITH OPTIFORM QD AND PRN IF SOILING -APPLY FORM DRESSING TO SACROCOCCYX Q7 DAYS AND PRN IF SOILING PREVENTION -APPLY VERSATEL DRESSING TO RIGHT LE ANTERIOR HIRAM-ANKLE Q5 DAYS AND PRN IF SOILING -APPLY HEEL PROTECTORS TO BOTH HEELS AT ALL TIMES -OFFLOAD BILATERAL HEELS BY PLACING PILLOWS UNDER CALVES UNLESS OTHERWISE CONTRAINDICATED -PRESSURE REDISTRIBUTION SURFACE THERAPY -TURN AND REPOSITION Q2H, OFFLOAD SACRALCOCCYX AND BUTTOCKS BY TURNING RIGHT AND LEFT -CONTINUE TO FOLLOW RD RECOMMENDATIONS ALL ABOVE RECOMMENDATIONS DISCUSSED WITH PRIMARY RN. WILL FOLLOW UP PT Q7-10 DAYS. PLEASE CONTACT WOUND CARE NURSE FOR ANY QUESTION AND CHANGE OF WOUND CONDITION.
[2018-07-06] MEDS: KCL 20 MEQ/WATER INJ PREMIX 100 ML IV SCH ×2 (09:01→10:42)
[2018-07-06] MEDS: INSULIN LANTUS 100 UNITS/ML 10 ML VIAL SUBQ SCH (09:02)
[2018-07-06] MEDS: PANTOPRAZOLE 40 MG INJ VIAL IVP SCH (09:04)
[2018-07-06] MEDS: THIAMINE 200 MG in NACL 0.9% 50 ML IV SCH ×2 (09:04→20:19)
[2018-07-06] MEDS: amLODIPine 5 MG TAB PO SCH (09:04)
[2018-07-06] MEDS: ATORVASTATIN 20 MG TAB PO SCH (09:05)
[2018-07-06] MEDS: LOSARTAN 50 MG TAB PO SCH (09:05)
[2018-07-06] MEDS: LACTOBACILLUS RHAMNOSUS GG 1 EACH CAP PO SCH (09:06)
[2018-07-06] MEDS: SODIUM PHOS / POTASSIUM PHOS 1 PKT PDR PO SCH ×2 (09:08→20:18)
[2018-07-06 09:29] LABS: T4 (THYROXINE) 7.3 ug/dL (4.5-12.0)
[2018-07-06] MEDS ORDERED: INTERDRY CLOTH TP PRN (09:40)
[2018-07-06] MEDS ORDERED: Z-GUARD PASTE TP PRN (09:40)
--- NOTE | 2018-07-06 09:59 | NUR ---
DR FARHAD NEGRON AT BEDSIDE ADJUSTMENTS TO VENTILATOR BY INCREASED VT TO 550 ml DECREASED FLOE CHRIS 30 l/min Addendum: 07/06/18 at 1100 by Bennie Augustine RT FLOE = FLOW
--- NOTE | 2018-07-06 10:04 | NUR ---
SEDATED RESTING WELL NO EVIDENCE OF PULMONARY DISTRESS NOTED GOOD EQUAL CHEST RISE ENDOTRACHEAL TRACHEAL SUCTION FOR SMALL THIN YELLOW SECRETINS AIRWAY PATENT
--- NOTE | 2018-07-06 10:05 | NUR ---
HERE TO ASSESS PATIENT, CHANGED SETTING,TIDAL VOLUME NOW AT 550.
--- NOTE | 2018-07-06 11:55 | NUR ---
SEDATED STABLE NO APPARENT SOB NOTED GOOD CHEST RISE AIRWAY PATENT
[2018-07-06] MEDS ORDERED: VANCOMYCIN 1GM/DEXT 5% PREMIX 200 ML IV SCH (13:00)
[2018-07-06] MEDS: HYDRAGUARD CREAM TP SCH ×2 (13:00→16:44)
[2018-07-06] MEDS: Z-GUARD PASTE TP SCH ×2 (13:00→16:44)
[2018-07-06] MEDS ORDERED: INTERDRY CLOTH TP SCH (13:20)
--- NOTE | 2018-07-06 14:08 | NUR ---
SEDATED NO DISTRESS NOTED GOOD EQUAL CHEST RISE AIRWAY PATENT FAMILY IN ROOM
--- NOTE | 2018-07-06 14:19 | NUR ---
CASE MGT: FRITZ CONTACTED [facility] DEPARTMENT @ P AND SPOKE WITH LAINA ( SEWING MACHINE OPERATOR SEMIAUTOMATIC) . CM ASSIGNED IS RACHEL, HOWEVER IS CURRENTLY ON LUNCH. CM FAXED TRANSFER REQUEST ORDER TO F . CM TO FOLLOW UP NEEDED. Addendum: 07/06/18 at 1430 by Cindy Rousseau CM CM FOLLOW UP WITH [facility], HOWEVER RACHEL IS CURRENTLY UNAVAILABLE. FRITZ SPOKE WITH KARTHIK ( SEWING MACHINE OPERATOR [employer]AT[employer]), CHECKED ON STATUS OF TRANSFER. PER KARTHIK, THEY ARE CURRENTLY INITIATING THE TRANSFER. CM PROVIDED KARTHIK [facility] NAME AND CONTACT NUMBER AND ICU NURSING STATION CONTACT NUMBER. KARTHIK WILL FAX TRANSFER CHECK LIST. CM TO FOLLOW UP NEEDED.
--- NOTE | 2018-07-06 14:30 | NUR ---
DR. GAMING AT BEDSIDE WITH PT FAMILY MEMBERS TO GIVE UPDATE ON PT STATUS.
[2018-07-06] MEDS ORDERED: NACL 0.9% 1,000 ML IV SCH (14:55)
--- NOTE | 2018-07-06 15:30 | NUR ---
RECEIVED A CALL FROM WINDOWS SERVER ARCHITECT RACHEL FROM [facility] AND GAVE REPORT ON PT.
--- NOTE | 2018-07-06 15:56 | NUR ---
SEDATED RESTING WELL NO RESPIRATORY DISTRESS NOTED GOOD EQUAL CHEST RISE ENDOTRACHEAL SUCTION FOR SMALL THICK YELLOW SECRETIONS AIRWAY PATENT Addendum: 07/06/18 at 1620 by Bennie Augustine RT SATURATION 100% ON FIO2 OF 30% TITRATED FIO2 TO 28% LENNY NOTIFIED
--- NOTE | 2018-07-06 16:07 | NUR ---
OROPHARYNGEAL SUCTION FOR COPIOUS THICK CLEAR TO STREAKY YELLOW SECRETIONS
--- NOTE | 2018-07-06 17:12 | NUR ---
FRITZ SPOKE WITH RACHEL (FRITZ @ [facility]) @ P . SHE IS CURRENTLY WAITING FOR FAMILY APPROVAL. FRITZ INFORMED CHARGE NURSE AND WILL BE FOLLOWING UP FAMILY APPROVAL. PLEASE CALL RACHEL HU ONCE FAMILY APPROVED THE TRANSFER.
[2018-07-06] MEDS ORDERED: D50SYR IVP (17:14)
[2018-07-06] MEDS ORDERED: HUMSLIDE SUBQ (17:14)
[2018-07-06] MEDS ORDERED: HEPA500056 SUBQ (17:14)
[2018-07-06] MEDS ORDERED: LACT10CA PO (17:14)
[2018-07-06] MEDS ORDERED: Vancomycin Per Pharmacy MC (17:14)
[2018-07-06] MEDS ORDERED: LANTUS SUBQ (17:14)
[2018-07-06] MEDS ORDERED: ZOS2.25PM IV (17:14)
[2018-07-06] MEDS ORDERED: Hydraguard TP (17:14)
[2018-07-06] MEDS ORDERED: GLUC-805 FS (17:14)
[2018-07-06] MEDS ORDERED: PANT40PD7 IVP (17:14)
--- NOTE | 2018-07-06 17:45 | NUR ---
TUBE FEEDING STARTED AT 15 ML/HR ORDERED. OGT PLACEMENT CONFIRMED, NO RESIDUALS NOTED.
--- NOTE | 2018-07-06 17:45 | NUR ---
STARTED PT ON TUBE FEEDING AT 15ML/HR WITH 65 ML FLUSH Q4H. CHECK RESIDUAL ONE HOUR AFTER START. Addendum: 07/06/18 at 1849 by Teodora Saenz RN STARTED PT ON TUBE FEEDING AT 15 ML/HR WITH 60 ML FLUSH Q4H. HOLD FEEDING IF RESIDUAL 100ML, RECHECK IN HOUR.
[2018-07-06 17:48] LABS: APPEARANCE,URINE CLEAR (CLEAR); BILIRUBIN,URINE NEGATIVE (NEGATIVE); BLOOD, URINE 2+ (NEGATIVE); COLOR,URINE YELLOW (YELLOW); LEUKOCYTE ESTERASE ,URINE TRACE (NEGATIVE); NITRITE, URINE NEGATIVE (NEGATIVE); PH,URINE 6.5 (5.0-9.0); UGLUCOSE NEGATIVE (NEGATIVE)
[2018-07-06 18:04] LABS: RBC,URINE >20 (MANY) /HPF (0-5)
--- NOTE | 2018-07-06 18:05 | NUR ---
PATIENT WAS RESTING WHEN I WENT IN AND TOLERATING VENT SETTINGS OF AC: RR 10, TIDAL VOLUME 550, PEEP OF 5, FIO2 30%. ALARMS WERE ON & AUDIBLE. VENT CONNECTED TO RED PLUG OUTLET. AMBU BAG AT BEDSIDE. WAS ABLE TO SUCTION A SMALL-MODERATE AMOUNT OF PULIDO WITH RED TINGED THICK SECRETIONS. LEFT PATIENT RESTING COMFORTABLY. WILL CONT TO MONITOR PATIENT
--- NOTE | 2018-07-06 18:30 | NUR ---
ASSESSED PT. RT FEMORAL DRESSING, CHANGED DRESSING PER PRN SIGNED AND DATED. REPOSITIONED PATIENT AND PROVIDED VAP PREVENTION ORAL CARE. PT TOLERATING WELL. NO DISTRESS NOTED AT THIS TIME.
--- NOTE | 2018-07-06 18:30 | NUR ---
IN TO ASSESS PATIENT. WILL CONTINUE TO MONITOR.
--- NOTE | 2018-07-06 19:10 | NUR ---
GAVE REPORT TO [facility]. PATIENT STABLE, NO DISTRESS NOTED AT THIS TIME.
--- NOTE | 2018-07-06 19:15 | NUR ---
RECEIVED REPORT FROM AM NURSE, REYES IN PLACE, IV FLUIDS RUNNING, SIDERAILS UP X2, ALARMS IN PLACE, HR REGULAR, S1S2 PRESENT, CAP REFILL <3S, 2+ BILATERAL UPPER AND LOWER EXTREMITIES, LUNG SOUNDS CLEAR THROUGHOUT, REGULAR, SYMMETRICAL ON INSPIRATION AND EXPIRATION, PT ON ETT TO VENT, PEEP 5, AC/VC, 28 FIO2, RATE 10, BOWEL SOUNDS PRESENT IN ALL QUADRANTS HYPOACTIVE, ABDOMEN SOFT, ROUND, NONDISTENDED, PERRL, PT ON SEDATION, RASS -3, PROPOFOL RUNNING AT 15 MCG/HR, DRY WEIGHT 110 KG. WILL CONTINUE TO MONITOR PT.
--- NOTE | 2018-07-06 20:54 | NUR ---
GAVE REPORT TO [facility] AT BEDSIDE. PT'S BELONGINGS WAS GIVEN TO THEM WELL. WILL CALL [facility] TO GIVE REPORT TO THE RN TO TAKE PT.
--- NOTE | 2018-07-06 20:56 | NUR ---
CALLED [facility] AND GAVE REPORT TO DERIC, THE NURSE THAT WILL RECEIVED THE PT. 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
--- NOTE | 2018-07-06 21:05 | NUR ---
ATTEMPTED TO PRINT PICTURES TAKEN OF WOUNDS, BUT FOR SOME UNKNOWN REASON THE PICTURE WILL NOT LOAD IN THE CAMERA. UNABLE TO PRINT PICTURES.
--- NOTE | 2018-07-06 21:10 | NUR ---
PT LEFT UNIT WITH [facility]. ACCOMPANIED BY DEHYDRATOR OPERATOR. BELONGINGS AND PT OWN MEDICATIONS SENT WITH HER.
== END 2018-07-06 21:10 | disposition short-term general hospital (02) | DRG 871 ==
LOC: MED 19:42 → MIC 23:12
PROVIDERS: ADMIT General Practice; ATTEND General Practice
PROC: 5A1945Z Respiratory Ventilation, 24-96 Consecutive Hours (ICD-10-PCS; principal; 2018-07-04)
PROC: 0BH17EZ Insertion of Endotracheal Airway into Trachea, Via Natural or Artificial Opening (ICD-10-PCS; 2018-07-04)
PROC: 06HY33Z Insertion of Infusion Device into Lower Vein, Percutaneous Approach (ICD-10-PCS; 2018-07-04)
PROC: B54BZZA Ultrasonography of Right Lower Extremity Veins, Guidance (ICD-10-PCS; 2018-07-04)
DX: A41.9 Sepsis, unspecified organism (principal); J69.0 Pneumonitis due to inhalation of food and vomit; R65.21 Severe sepsis with septic shock; G93.41 Metabolic encephalopathy; N17.0 Acute kidney failure with tubular necrosis; J96.01 Acute respiratory failure with hypoxia; I50.43 Acute on chronic combined systolic (congestive) and diastolic (congestive) heart failure; E11.10 Type 2 diabetes mellitus with ketoacidosis without coma; I21.A1 Myocardial infarction type 2; E43 Unspecified severe protein-calorie malnutrition; M62.82 Rhabdomyolysis; F11.20 Opioid dependence, uncomplicated; N39.0 Urinary tract infection, site not specified; I13.0 Hypertensive heart and chronic kidney disease with heart failure and stage 1 through stage 4 chronic kidney disease, or unspecified chronic kidney disease; Z68.42 Body mass index [BMI] 45.0-49.9, adult; E87.3 Alkalosis; G89.29 Other chronic pain; T22.10XA Burn of first degree of shoulder and upper limb, except wrist and hand, unspecified site, initial encounter; E78.5 Hyperlipidemia, unspecified; E86.0 Dehydration; E87.6 Hypokalemia; E83.42 Hypomagnesemia; E83.39 Other disorders of phosphorus metabolism; E87.8 Other disorders of electrolyte and fluid balance, not elsewhere classified; E83.51 Hypocalcemia; E11.65 Type 2 diabetes mellitus with hyperglycemia; E11.40 Type 2 diabetes mellitus with diabetic neuropathy, unspecified; E11.21 Type 2 diabetes mellitus with diabetic nephropathy; E11.51 Type 2 diabetes mellitus with diabetic peripheral angiopathy without gangrene; N18.3 Chronic kidney disease, stage 3 (moderate); E11.22 Type 2 diabetes mellitus with diabetic chronic kidney disease; M79.7 Fibromyalgia; E66.01 Morbid (severe) obesity due to excess calories; Z88.8 Allergy status to other drugs, medicaments and biological substances; X08.8XXA Exposure to other specified smoke, fire and flames, initial encounter; Y93.89 Activity, other specified; Y92.89 Other specified places as the place of occurrence of the external cause; Y99.8 Other external cause status; R13.11 Dysphagia, oral phase
CPT/HCPCS: 31500; 36415; 36556; 36600; 51702; 70450; 71045; 72125; 74018; 76700; 78582; 80048; 80053; 80202; 80305; 81001; 82009; 82140; 82150; 82272; 82550; 82553; 82803; 82948; 83036; 83605; 83690; 83735; 83880; 84100; 84134; 84436; 84443; 84484; 85025; 85610; 85730; 87040; 87045; 87070; 87081; 87086; 87186; 87205; 89055; 89220; 93005; 93925; 93970; 94002; 94003; 94640; 95816; 96365; 96367; 96375; 99291; C9113; G0480; G0482; J0696; J1165; J1644; J1815; J1953; J2001; J2543; J2704; J3370; J3411; J3475; J3480; J7030; J7042; J7060; J7620; Q0092